=== PATIENT | male | born 1940 | race Caucasian/White ===

== ENCOUNTER 2016-12-19 12:51 | Inpatient (IN) | payer MEDICARE, OTHER ==
--- NOTE | ~2016-12-19 | HP ---
History And Physical [id number] [place]. [address] NAME: SHAGGY FLORES : 39 STATUS : ADM IN [facility]#: [id number] AGE: 76 ADM/REG DATE : 12/19/16 MR#: [id number] REPORT SERV DATE: 12/19/16 DICTATED BY: MURALI HURLEY DATE: 12/19/16 REPORT STATUS : Draft TRANSCRIBED BY: ARDEN DATE: 12/19/16 DATE OF ADMISSION: 12/19/2016 REASON FOR ADMISSION: Abdominal pain for five days. HISTORY OF PRESENT ILLNESS: A 76-year-old white male with past medical history of bladder cancer, status post urostomy; coronary artery disease, status post stent; anxiety; hypertension; hyperlipidemia; GERD, presenting with abdominal pain x5 days. The patient states that he was in his usual state of health on Thursday when he was able to be eat spaghetti without any complications. However, the patient went to [place] on Thursday at approximately 1:30 in the afternoon. He started having nausea, vomiting, and diarrhea with abdominal pain. The patient states nothing made the pain better or worse. It was midepigastric in nature. It was stabbing in character. During his time at [place], the patient did visit the ER at [facility] and he was diagnosed with a UTI. The patient was given some antibiotics through his IV in the ER and was given prescriptions for p.o. medications. However, the and the patient did not bother filling out the prescription and hence the patient never got treated. Fast forward to within the past 24 hours. The patient states that he has been having no appetite or any food intake since he got back from [place] on Thursday. However, within the past 24 hours, he has been having the similar symptoms of nausea and vomiting. The patient denies any hematemesis or hemoptysis. The patient initially started at [facility] and subsequently came to [facility] for transfer. The patient states he has not had any further diarrhea since Thursday. The patient denies any nausea, vomiting, chest pain, or shortness of breath. He denies any cough or sputum production. PAST MEDICAL HISTORY: As above. MEDICATIONS: The patient takes, 1. Tylenol 500 mg p.o. b.i.d. p.r.n. 2. Aspirin 81 mg p.o. daily. 3. Lipitor 20 mg p.o. at bedtime. 4. Pepto-Bismol 30 mL p.o. daily p.r.n. 5. Calcium one to two tabs p.o. four times a day p.r.n. 6. Tums 500 mg one to two tabs four times a day p.r.n. 7. Valium 10 mg p.o. daily p.r.n. 8. Nexium 40 mg p.o. daily. 9. Toprol-XL 12.5 mg p.o. b.i.d. 10.Aleve 220 mg p.o. daily p.r.n. for headache. 11.Altace 5 mg p.o. daily. 12.Nitroglycerin sublingual p.r.n. ALLERGIES: IODINE. SOCIAL HISTORY: Nonsmoker, nondrinker. Patient did have a history of smoking, but quit. FAMILY HISTORY: Significant for diabetes, dementia, and black lung. History And Physical [address] [address] NAME: SHAGGY FLORES : 39 STATUS : ADM IN PAT#: [id number] AGE: 76 ADM/REG DATE : 12/19/16 MR#: [id number] REPORT SERV DATE: 12/19/16 DICTATED BY: MURALI HURLEY DATE: 12/19/16 REPORT STATUS : Draft TRANSCRIBED BY: ARDEN DATE: 12/19/16 REVIEW OF SYSTEMS: 10-point review of systems conducted, which were negative except for above complaints. PHYSICAL EXAMINATION: VITAL SIGNS: Temperature of 101, pulse of 80, respiratory rate 16, BP 168/70, O2 saturation 92% on room air. HEAD AND NECK: Normocephalic, atraumatic. CARDIOVASCULAR: S1, S2. Regular rate and rhythm. LUNGS: Good air entry. No wheeze, rales, or rhonchi. ABDOMEN: Soft. Positive tenderness midepigastric. Positive urostomy on the right. Positive bowel sounds. No organomegaly. EXTREMITIES: No clubbing, cyanosis, or edema. NEUROLOGIC: Awake, alert, and oriented x3. Cranial nerves 2 through 12 grossly intact. LABORATORY DATA: Sodium 141, potassium 4.0, chloride 106, bicarb 26.1, BUN 25, creatinine 1.6, glucose 113, GFR 44, calcium 8.0, total bilirubin 0.4, AST 19, ALT 45, alkaline phosphatase 101, total protein 6.3, albumin 3.6, globulin 2.7, amylase 66, lipase 218. WBC 8.0, hemoglobin 15.1, hematocrit 44.3, platelets 128. Lactic acid 1.2. CT scan from [facility] shows no evidence of small bowel obstruction. The patient noted to have gallstones. ASSESSMENT AND PLAN: 1. Abdominal pain x5 days, rule out gastroenteritis, myocardial infarction, versus mesenteric stenosis. We will check cardiac enzymes q.6 hours. In addition, we will also order ultrasound of the abdomen, ruling out mesenteric stenosis. CT scan that was done at [facility] has been uploaded to PACS pending further evaluation from Radiology. In the meantime, we will also treat the patient with analgesia and Zofran. 2. Hypertension. Continue Altace and metoprolol. 3. Hyperlipidemia. Continue Lipitor. 4. Anxiety. Continue Valium p.r.n. 5. Gastroesophageal reflux disease. Continue omeprazole. 6. Deep venous thrombosis prophylaxis. We will give heparin. FBJ/MODL Murali Hurley MD / [id number] CC: Murali Hurley MD
--- NOTE | ~2016-12-19 | IDS ---
Interim Discharge Summary [facility] [address] [place]. [address] NAME: SHAGGY FLORES : 39 STATUS : ADM IN [facility]#: [id number] AGE: 76 ADM/REG DATE : 12/19/16 MR#: [id number] REPORT SERV DATE: 12/28/16 DICTATED BY: CANDY TRINIDAD DATE: 12/28/16 REPORT STATUS : Draft TRANSCRIBED BY: MODL DATE: 12/28/16 ADMISSION DATE: 12/19/2016 DISCHARGE DATE: UROLOGIST: Izaiah Bailey M.D. CONSULTING PHYSICIAN: Dr. Briggs for Surgery. INTERIM DIAGNOSES: 1. Status post laparoscopic cholecystectomy for gangrenous cholecystitis with cholelithiasis. 2. Gram-negative angélica bacteremia. 3. History of bladder cancer with urostomy. 4. Coronary artery disease with stent. 5. Hypertension. 6. Anxiety. DIAGNOSTIC EXAMS: Mesenteric duplex showing elevated velocity in the celiac artery. No Doppler evidence for significant stenosis of the superior mesenteric artery or inferior mesenteric artery. Abdominal ultrasound showing cholecystitis. No biliary dilatation. Slight dilatation of the calyces in both kidneys. HOSPITAL COURSE: Please refer to the H and P done by Dr. Yepez, dated on 12/19/2016. Briefly, this is a 76-year-old male, who with CAD, surgically removed bladder for cancer and urostomy, comes in with abdominal pain for five days. The patient noted that this pain is increased when he eats and has not been eating well. He was diagnosed with urinary tract infection, but he did not fill his outpatient prescription. The patient then came to the emergency room and was admitted by Dr. Yepez. The patient was initially thought to have a UTI and was given antibiotics for that. However, he continued having this abdominal pain and we did the above tests. We immediately got Dr. Briggs involved and he did a laparoscopic cholecystectomy, removing the gangrenous cholecystitis. Meanwhile, the patient has a gram-negative rods in one of the blood cultures and it has not been identified yet. It has to be sent out. He is now still on ceftriaxone five days postop and we are going to be continuing this until we get the cultures. Meanwhile, the patient is slowly recovering. We got Physical Therapy involved and they recommended the patient needs to go to a rehab facility and the family agreed to this. We are now waiting for rehab placement and once the patient goes, the patient will be off antibiotics. Partner of mine will be following up the patient on Thursday. GRADY/ARDEN Candy Trinidad M.D. Interim Discharge Summary [address] [address] NAME: SHAGGY FLORES : 39 STATUS : ADM IN PAT#: [id number] AGE: 76 ADM/REG DATE : 12/19/16 MR#: [id number] REPORT SERV DATE: 12/28/16 DICTATED BY: CANDY TRINIDAD DATE: 12/28/16 REPORT STATUS : Draft TRANSCRIBED BY: ARDEN DATE: 12/28/16 / [id number] CC: Jefe Rendon MD
--- NOTE | ~2016-12-19 | DS ---
Discharge Summary [facility] [address] [facility] [place]. [address] NAME: SHAGGY FLORES : 39 STATUS : DIS IN PAT#: [id number] AGE: 76 ADM/REG DATE : 12/19/16 MR#: [id number] REPORT SERV DATE: 12/31/16 DICTATED BY: CANDY OLIVEIRA DATE: 12/30/16 REPORT STATUS : Draft TRANSCRIBED BY: MODL DATE: 12/30/16 ADMISSION DATE: 12/19/2016 DISCHARGE DATE: 12/30/2016 PRESS BRAKE OPERATOR: Dr. Remigio Briggs, General Surgery. DISCHARGE DIAGNOSES: 1. Gram-negative bacilli sepsis. 2. Gangrenous cholecystitis. 3. Coronary artery disease with previous stent. 4. Hypertension. 5. Gastroesophageal reflux disease. 6. 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 Palma. 7. Previous ruptured appendicitis. 8. Stated history of multiple sclerosis in the past. HISTORY: This patient presented to an outside emergency room of [facility]. He had abdominal pain. The ER felt he needed inpatient care and the patient requested transfer to our facility. Imaging done at the outside facility showed gallstones. Here, he underwent abdominal ultrasound showing evidence of cholecystitis with gallbladder wall thickening. Surgery, Dr. Briggs saw the patient, talked with him and his family about the risks and benefits of surgery. He was taken to the operating room, where he was found to have acute gangrenous cholecystitis. He underwent laparoscopic lysis of adhesions and laparoscopic cholecystectomy on 12/23/2016. One of his blood cultures growing out a gram-negative bacilli. It is an unusual species that had been sent off to a reference lab to try to help identify it, but he is on Rocephin with excellent clinical response. He is afebrile. His white count has normalized. His abdominal pain has gone. His alkaline phosphatase, ALT, and AST normal. Total bilirubin normal. He has a chronic small appetite per his son, but he is even eating less after the surgery, has no abdominal pain, no nausea. Surgery has signed off his case. The patient states he had previous multiple sclerosis, but the MRI of the brain that I could find here done on 08/19/2011 at that time, just showed minimal atrophy and chronic microvascular white matter ischemic changes, otherwise unremarkable. CT scan of the brain done 06/22/2011 also showed no acute abnormalities and nothing to suggest multiple sclerosis on those exams. He is felt to need inpatient rehab. Those arrangements have been made. His son is aware. He does not have a Palma catheter. He has an ileal conduit. Therefore, any urinalysis and urine cultures will reflect bowel reza that is colonizing that ileal conduit, including the 50,000 methicillin-resistant Staph aureus that were found on a urine culture here on Discharge Summary [address] [place]. [address] NAME: SHAGGY FLORES : 39 STATUS : DIS IN PAT#: [id number] AGE: 76 ADM/REG DATE : 12/19/16 MR#: [id number] REPORT SERV DATE: 12/31/16 DICTATED BY: CANDY OLIVEIRA DATE: 12/30/16 REPORT STATUS : Draft TRANSCRIBED BY: ARDEN DATE: 12/30/16 12/19/2016. DISCHARGE MEDICATIONS: Aspirin 81 mg daily; Lipitor 20 mg at bedtime; Toprol-XL 12.5 mg twice a day, hold if pulse less than 60 or systolic less than 100; Nexium 40 mg daily; Altace 10 mg daily; Florastor one p.o. b.i.d. for three weeks; Tylenol 650 q.4 hours p.r.n. pain or fever; Pepto-Bismol p.r.n. upset stomach; Tums one or two q.i.d. p.r.n. indigestion; diazepam 10 mg b.i.d. p.r.n. anxiety, which is a chronic p.r.n. medicine for him; nitroglycerin 0.4 mg sublingual p.r.n. chest pain; Zofran ODT 4 mg q.4 hours p.r.n. nausea; Senokot two at bedtime p.r.n.; Percocet 5/325 q.6 hours p.r.n. pain; Rolaids p.r.n. My partner on admission had spoken to this gentleman about his code status and he was listed as DNR. Now on the day of discharge, I am meeting him for the first time and I have talked with him and his son, and the patient does verify that he is DNR/DNI and so I filled out the POLST form for rehab. I spent 47 minutes today with the patient, with a son, and with discharge planning. HENNA/ARDEN Candy Oliveira M.D. / [id number] CC: Jefe Sanchez M.D. [facility] Remigio Briggs M.D.
--- NOTE | ~2016-12-19 | CN ---
Consultation Report [facility] [address] [place]. [address] NAME: SHAGGY FLORES : 39 STATUS : ADM IN [facility]#: [id number] AGE: 76 ADM/REG DATE : 12/19/16 MR#: [id number] REPORT SERV DATE: 12/23/16 DICTATED BY: REMIGIO HERNÁNDEZ DATE: 12/23/16 REPORT STATUS : Draft TRANSCRIBED BY: MODL DATE: 12/23/16 SURGICAL CONSULTATION DATE OF CONSULTATION: It is a consultation requested from Dr. Balaji De La Vega. HISTORY OF PRESENT ILLNESS: This 76-year-old gentleman presented to the hospital with acute onset abdominal pain, that was localized in the right lower quadrant with nausea, vomiting, and diarrhea. He was out of town in [place] and his family brought him home secondary to the pain. He has a complex past medical history including a right lower quadrant urostomy, coronary artery disease, status post stent placement, previous perforated appendicitis with a right upper Riki-Michael incision, hypertension, hyperlipidemia, gastroesophageal reflux disease. He described the pain as sharp and stabbing. He was seen in the ED and felt to have urinary tract infection. He was given a prescription for p.o. medication and the patient subsequently was transferred to [facility] from [place]. He presented for admission here on 12/19/2016 with five days of pain. He was felt to have urinary tract infection. He denied hematemesis, coffee-grounds emesis, bright red blood per rectum, melena, or any active diarrhea at that time. Dr. De La Vega saw the patient today, the patient was noted to have exquisite, persistent right upper quadrant pain, and subsequently had an ultrasound that confirmed acute cholecystitis without biliary dilatation. On exam, the patient has findings consistent with his radiographic findings of acute cholecystitis. PAST MEDICAL HISTORY: As above, gastroesophageal reflux disease, history of bladder cancer. PAST SURGICAL HISTORY: Perforated appendectomy with right upper quadrant transverse incision, hernia repair x3, multiple bladder biopsies, and a cystectomy with ileal conduit. ALLERGIES: IODINATED CONTRAST DYE. MEDICATIONS: Please see hospital chart. SOCIAL HISTORY: The patient is and his family is at the bedside. He denies alcohol or tobacco. He smoked in the past, but quit some time ago. REVIEW OF SYSTEMS: The patient feels ill, hot, and weak. He denies current chest pain, dyspnea on exertion, syncope, palpitations, jaundice, or itching. He has no current bright red blood per rectum, acholic stools, or palmar erythema. PHYSICAL EXAMINATION: GENERAL: Ill-appearing male, in moderate distress. VITAL SIGNS: His temperature on 12/22/2016 was 102.3 with a 95 heart rate. CARDIOVASCULAR: Regular rate and rhythm. Consultation Report [address] [place]. [address] NAME: SHAGGY FLORES : 39 STATUS : ADM IN PAT#: [id number] AGE: 76 ADM/REG DATE : 12/19/16 MR#: [id number] REPORT SERV DATE: 12/23/16 DICTATED BY: REMIGIO HERNÁNDEZ DATE: 12/23/16 REPORT STATUS : Draft TRANSCRIBED BY: ARDEN DATE: 12/23/16 RESPIRATORY: Clear to auscultation. ABDOMEN: Soft, minimal distention. The patient has a right lower quadrant ileostomy with urine. He has a well-healed low midline incision on the right upper quadrant transverse incision. He has severe tenderness in the right upper quadrant with percussive tenderness and voluntary guarding. BACK: No CVA tenderness. EXTREMITIES: No clubbing, cyanosis, edema, or jaundice. LABORATORY DATA: The patient's white blood cell count is now 11,100, it was 13,600 yesterday. His liver function studies are within normal limits. He has positive blood cultures for gram-negative rods consistent with sepsis. IMAGING: Please see hospital chart. ASSESSMENT: 1. Cholelithiasis with acute cholecystitis with sepsis. 2. Hypertension. 3. Coronary artery disease with stent placement. 4. Significant previous past surgical histories of the abdomen. 5. Hypertension. 6. Hyperlipidemia. 7. Gastroesophageal reflux disease. 8. Anxiety. PLAN: The patient was informed of the imaging findings and exam today consistent with acute cholecystitis and our wish to proceed with cholecystectomy, they are informed of the significant increased risk for complications secondary to his previous incisions and lengthy inflammatory course prior to diagnosis today. They have been informed of the potential for bleeding, infection, poor cosmetic result, injury to the common bile duct and other intraabdominal structures, and other biliary ducts and wished to proceed. They decline further observation. They are aware of this significantly increased potential for open procedure secondary to his previous surgeries. DH/MODL Remigio Hernández M.D. / [id number] CC: MD Rebeca Cameron MD
--- NOTE | ~2016-12-19 | OP ---
Record Of Operation [address] [place]. [address] NAME: SHAGGY FLORES : 39 STATUS : ADM IN PAT#: [id number] AGE: 76 ADM/REG DATE : 12/19/16 MR#: [id number] REPORT SERV DATE: 12/23/16 DICTATED BY: REMIGIO HERNÁNDEZ DATE: 12/23/16 REPORT STATUS : Draft TRANSCRIBED BY: MODL DATE: 12/23/16 DATE OF PROCEDURE: 12/23/2016 PREOPERATIVE DIAGNOSES: 1. Cholelithiasis with acute gangrenous cholecystitis with sepsis. 2. Coronary artery disease status post stent placement. 3. History of bladder cancer with cystectomy and ileal conduit. 4. Hypertension. 5. History of right upper quadrant incisional hernia repair. POSTOPERATIVE DIAGNOSES: 1. Cholelithiasis with acute gangrenous cholecystitis with sepsis. 2. Coronary artery disease status post stent placement. 3. History of bladder cancer with cystectomy and ileal conduit. 4. Hypertension. 5. History of right upper quadrant incisional hernia repair. PROCEDURE: 1. Laparoscopic lysis of adhesions. 2. Laparoscopic cholecystectomy. ANESTHESIA: General. SURGEON: Remigio Hernández M.D. TOW BAR DRIVER: Suleman. COMPLICATIONS: None. DRAINS: None. ESTIMATED BLOOD LOSS: 75 mL. FINDINGS: 1. The patient was noted to have multiple significant omental adhesions to the previous right subcostal incision. Precluding visualization of the gallbladder and these were taken down using sharp scissors until the right upper quadrant trocars could be placed for cholecystectomy. 2. The patient had complete envelopment of the gallbladder by the omentum secondary to gangrene of the gallbladder. 3. The patient noted to have marked gangrenous gallbladder changes with black and green serosa with a normal-sized cystic duct. Therefore, no cholangiogram was obtained. 4. The patient had an additional one hour surgery secondary to severity and chronicity of disease and lysis of adhesions from previous abdominal operations. OPERATIVE TECHNIQUE: The patient was brought to the operating room and placed on the table Record Of Operation [address] [place]. [address] NAME: SHAGGY FLROES : 39 STATUS : ADM IN PAT#: [id number] AGE: 76 ADM/REG DATE : 12/19/16 MR#: [id number] REPORT SERV DATE: 12/23/16 DICTATED BY: REMIGIO HERNÁNDEZ Neymar DATE: 12/23/16 REPORT STATUS : Draft TRANSCRIBED BY: MODL DATE: 12/23/16 in a supine position. He had preoperative IV antibiotics. He had sequential hose in place. He voided prior to the procedure. He underwent general endotracheal anesthesia and was prepped and draped in sterile fashion and time-out was completed. Local anesthesia was instilled after an Ioban was placed around his ileal conduit. The anesthesia was instilled in the supraumbilical skin. A 15 blade knife was used to make a supraumbilical incision. A 12 mm trocar was inserted through the supraumbilical skin into the abdomen, and the laparoscope was inserted. There was no evidence of Veress or trocar injury. The above- mentioned findings were noted. An 11 mm trocar was inserted just to the left of the midline in the epigastrium under direct visualization. There was no evidence of any Veress or trocar injury. This was used with scissors to take down the right upper quadrant adhesions from the midline all the way to the right lateral upper abdominal wall. This was under direct visualization with blunt dissection with the scissors and then small cuts through tissue that could be visualized. There was no evidence of any bowel involvement. After all these adhesions were taken down after an additional 30 minutes of dissection, the two right upper quadrant trocars were placed under direct visualization. At this point, the patient was placed in reverse Trendelenburg and rolled to the left. Visualization of the abdomen from the epigastric trocar revealed ileal conduit to be intact with a small incarcerated preperitoneal fat without obstruction. There were multiple adhesions of the bowel to the anterior abdominal wall below the umbilicus and these were left in situ as there was no evidence of obstruction and they were intimately adherent to the anterior abdominal wall. The laparoscope was reinserted and the gallbladder could not be visualized. After the liver edge was carefully lifted up, a window was created at the absolute fundus of the gallbladder, so that it could be visualized. Using hydrodissection, the entire omentum was taken down away from the gallbladder as well as the right lateral liver using some electrocautery on the liver with the hook as well. This allowed the entire gallbladder to be identified and this took an additional 20 minutes of dissection secondary to the severity and chronicity of disease. The dissection continued and the cystic duct gallbladder junction was identified. It was carefully dissected using hydrodissection, encircled with a 5 mm [place] dissector. It was clipped three times proximally and divided distally. Of note, prior to grasping of the gallbladder, the gallbladder was aspirated and the black bile was aspirated and some was sent for culture. The cystic artery was then identified using blunt dissection more medial and it was encircled using hydrodissection, clipped twice proximally and cauterized distally. The gallbladder was removed from the fossa using hydrodissection and electrocautery hook and placed in a specimen bag and removed through the umbilicus with extension of the fascial incision. The laparoscope and trocar were reinserted, and examination of hepatic fossa noted to be hemostatic after irrigation and cautery of the liver bed. Two pieces of Surgicel were placed as well in light of the patient's recently getting heparin. There was no evidence of any other visual abnormalities at the end of the procedure. The clips were noted to be intact without any gross encroachment of common bile duct. As there was no evidence of any other visual abnormalities, all the instruments and trocars removed under direct visualization. The pneumoperitoneum was aspirated as the instruments were removed. The umbilical fascia was reapproximated using a running 0 Vicryl suture. Subcutaneous tissues were then thoroughly irrigated. The skin edges were reapproximated using running subcuticular Monocryl sutures. Dermabond was applied. He was extubated and taken to the recovery room in stable condition. All sponge and needle counts reported correct. Record Of Operation [address] [place]. [address] NAME: SHAGGY FLORES : 38 STATUS : ADM IN PAT#: [id number] AGE: 76 ADM/REG DATE : 12/19/16 MR#: [id number] REPORT SERV DATE: 12/23/16 DICTATED BY: REMIGIO HERNÁNDEZ DATE: 12/23/16 REPORT STATUS : Draft TRANSCRIBED BY: ARDEN DATE: 12/23/16 SABINE/ARDEN Remigio Hernández M.D. / [id number] CC: Jefe Rendon MD Patrick Foley, M.D. Froilan B. Joves, MD
[~2016-12-19 12:51] MED LIST: *UNABLE3; ALTA2.5 PO; ALTA5 PO; ASAB PO; ASABAYER PO; CIPRO (10%) PO; CRESTOR10 PO; DCN100 PO; DITRO5 PO; FIORICET OR; FLEX PO; LIPITOR10 PO; LIPITOR20 PO; LOP25 PO; METOPROLOL 25MG PO; NEXIUM40 PO; NITROMIST400 MCG SL; NITROSPRAY SL; NORCO1 TA1 PO; PCET PO; PERCOCET1 TA2 PO; PLAVIX PO; PYR200 PO; REQUIP5 MG PO; TESS PO; TOPXL25 PO; VALIUM; VALIUM PO; VALIUM10 MG PO; XALAT OPH
[2016-12-19] MEDS ORDERED: NEXIUM40 PO (14:08)
[2016-12-19] MEDS ORDERED: ALTA5 PO (14:13)
[2016-12-19] MEDS ORDERED: HALF81 PO (14:14)
[2016-12-19] MEDS ORDERED: TUMSROLL PO (14:14)
[2016-12-19] MEDS ORDERED: VALIUM10 MG PO (14:14)
[2016-12-19] MEDS ORDERED: TOPXL25 PO (14:14)
[2016-12-19] MEDS ORDERED: NITROSTAT0.4 MG SL (14:20)
[2016-12-19] MEDS ORDERED: ROLAID PO (14:21)
[2016-12-19] MEDS ORDERED: ALEVE220 MG PO (14:22)
[2016-12-19] MEDS ORDERED: ACET500CAP PO (14:23)
[2016-12-19] MEDS ORDERED: LIPITOR20 PO (14:23)
[2016-12-19] MEDS ORDERED: PEPTO BISMOL LIQ1 ML PO (14:23)
[2016-12-19] MEDS ORDERED: NITROGLYCERIN SPRAY SL (14:24)
[2016-12-19 17:02] LABS: C-REACTIVE PROTEIN 21.3 MG/L (<8.0); CPK 76 U/L (0-200); TROPONIN I <0.02 NG/ML (<0.05)
[2016-12-19 17:27] LABS: PROCALCITONIN 0.52 ng/mL (<0.5)
[2016-12-19 18:52] LABS: INFLUENZA A SCREEN NEGATIVE (NEGATIVE); INFLUENZA B SCREEN NEGATIVE (NEGATIVE)
[2016-12-19 19:25] LABS: ASCORBIC ACID (UR NOT ORDER) NEG (NEG); BILIRUBIN, URINE NEGATIVE (NEG); KETONE, URINE NEGATIVE (NEG); LEUKOCYTE ESTERASE(NOT OR LARGE (NEG); WBC (NOT ORDERED) (RFLEX) 134 (0-5)
[2016-12-19 22:33] LABS: CK-MB 0.5 NG/ML; CPK 42 U/L (0-200)
[2016-12-20 04:56] LABS: BASOPHILS 0.1 %; BASOPHILS ABSOLUTE 0.01 10/3/uL (0.0-0.16); EOSINOPHILS 0.4 %; EOSINOPHILS ABSOLUTE 0.05 10/3/uL (0.0-0.53); IMMATURE GRANULOCYTES 0.2 %; IMMATURE GRANULOCYTES ABSOLUTE 0.02 10/3/uL (0.0-0.11); LYMPHOCYTES 14.1 %; LYMPHOCYTES ABSOLUTE 1.63 10/3/uL (0.67-4.30); MEAN CORPUS HGB CONC 34.2 g/dL (32.0-36.0); MEAN CORPUSCULAR HEMOGLOB 30.6 pg (26.0-34.0); MEAN CORPUSCULAR VOLUME 89.5 fL (80-100); MEAN PLATELET VOLUME 9.6 fL (9.2-13.0); MONOCYTES 7.9 %; MONOCYTES ABSOLUTE 0.91 10/3/uL (0.21-1.20); NEUTROPHILS 77.3 %; RBC DISTRIBUTION WIDTH 13.7 % (12.0-16.0)
[2016-12-20 04:57] LABS: HEMATOCRIT 42.7 % (40.0-51.0); HEMOGLOBIN 14.6 g/dL (13.6-17.8); MANUAL DIFF NO %; PLATELET COUNT 115 10/3/uL (150-400); RED CELL COUNT 4.77 10/6/uL (4.7-6.1); WHITE BLOOD CELLS 11.5 10/3/uL (4.5-10.5)
[2016-12-20 05:15] LABS: ALKALINE PHOSPHATASE 73 U/L (45-117); CALCIUM, SERUM 7.8 MG/DL (8.5-10.4); CHLORIDE, SERUM 108 MMOL/L (96-112); CO2 (CARBON DIOXIDE) 23 MMOL/L (24-34); CPK 38 U/L (0-200); GFR AFRICAN AMERICAN 61 ML/MIN (>=60); GFR NON AFRICAN AMERICAN 53 ML/MIN (>=60); GLUCOSE, SERUM 100 MG/DL (60-99); PHOSPHORUS, SERUM 2.4 MG/DL (2.5-4.5); POTASSIUM, SERUM 3.8 MMOL/L (3.5-5.3); SGOT(AST) 13 U/L (5-40); SGPT(ALT) 19 U/L (5-65); SODIUM, SERUM 142 MMOL/L (135-148); TOTAL BILIRUBIN 0.8 MG/DL (0-1.2); TOTAL PROTEIN 5.8 G/DL (6.0-8.5); TRIGLYCERIDE 59 MG/DL (< 150)
[2016-12-20 05:19] LABS: A/G RATIO 0.9 (0.7-1.9); ALBUMIN 2.8 G/DL (3.5-5.0); BUN (BLOOD UREA NITROGEN) 21 MG/DL (6-23); CHOLESTEROL 55 MG/DL (< 200); CK-MB < 0.5 NG/ML; HDL CHOLESTEROL 28 MG/DL (> 39); LDL CHOLESTEROL 16 MG/DL (< 130); NON-HDL CHOLESTEROL 27 MG/DL (< 160)
[2016-12-20 10:07] LABS: CPK 39 U/L (0-200)
[2016-12-20 10:08] LABS: CK-MB 0.7 NG/ML
[2016-12-21 07:37] LABS: BASOPHILS 0.2 %; BASOPHILS ABSOLUTE 0.02 10/3/uL (0.0-0.16); EOSINOPHILS 0.6 %; EOSINOPHILS ABSOLUTE 0.08 10/3/uL (0.0-0.53); HEMATOCRIT 41.4 % (40.0-51.0); HEMOGLOBIN 14.2 g/dL (13.6-17.8); IMMATURE GRANULOCYTES 0.5 %; IMMATURE GRANULOCYTES ABSOLUTE 0.07 10/3/uL (0.0-0.11); LYMPHOCYTES 14.1 %; LYMPHOCYTES ABSOLUTE 1.87 10/3/uL (0.67-4.30); MEAN CORPUS HGB CONC 34.3 g/dL (32.0-36.0); MEAN CORPUSCULAR HEMOGLOB 30.5 pg (26.0-34.0); MEAN CORPUSCULAR VOLUME 88.8 fL (80-100); MONOCYTES 6.8 %; NEUTROPHILS 77.8 %; PLATELET COUNT 101 10/3/uL (150-400); RBC DISTRIBUTION WIDTH 13.7 % (12.0-16.0); RED CELL COUNT 4.66 10/6/uL (4.7-6.1); WHITE BLOOD CELLS 13.2 10/3/uL (4.5-10.5)
[2016-12-21 07:39] LABS: MANUAL DIFF NO %
[2016-12-21 07:54] LABS: ALBUMIN 2.5 G/DL (3.5-5.0); BUN (BLOOD UREA NITROGEN) 20 MG/DL (6-23); CALCIUM, SERUM 7.8 MG/DL (8.5-10.4); CHLORIDE, SERUM 108 MMOL/L (96-112); CO2 (CARBON DIOXIDE) 22 MMOL/L (24-34); CREATININE 1.18 MG/DL (0.70-1.30); GFR AFRICAN AMERICAN 69 ML/MIN (>=60); GFR NON AFRICAN AMERICAN 59 ML/MIN (>=60); GLUCOSE, SERUM 97 MG/DL (60-99); PHOSPHORUS, SERUM 1.7 MG/DL (2.5-4.5); SODIUM, SERUM 140 MMOL/L (135-148)
[2016-12-21 07:55] LABS: POTASSIUM, SERUM 3.9 MMOL/L (3.5-5.3)
[2016-12-22 05:19] LABS: CALCIUM, SERUM 7.6 MG/DL (8.5-10.4); CHLORIDE, SERUM 104 MMOL/L (96-112); CO2 (CARBON DIOXIDE) 25 MMOL/L (24-34); CREATININE 1.13 MG/DL (0.70-1.30); GFR AFRICAN AMERICAN 72 ML/MIN (>=60); GFR NON AFRICAN AMERICAN 62 ML/MIN (>=60); GLUCOSE, SERUM 99 MG/DL (60-99); POTASSIUM, SERUM 3.5 MMOL/L (3.5-5.3); SODIUM, SERUM 139 MMOL/L (135-148)
[2016-12-22 05:20] LABS: BUN (BLOOD UREA NITROGEN) 15 MG/DL (6-23)
[2016-12-22 05:42] LABS: BASOPHILS 0.1 %; BASOPHILS ABSOLUTE 0.01 10/3/uL (0.0-0.16); EOSINOPHILS ABSOLUTE 0.13 10/3/uL (0.0-0.53); HEMATOCRIT 39.8 % (40.0-51.0); HEMOGLOBIN 13.5 g/dL (13.6-17.8); IMMATURE GRANULOCYTES 0.4 %; IMMATURE GRANULOCYTES ABSOLUTE 0.05 10/3/uL (0.0-0.11); LYMPHOCYTES 14.4 %; LYMPHOCYTES ABSOLUTE 1.96 10/3/uL (0.67-4.30); MEAN CORPUS HGB CONC 33.9 g/dL (32.0-36.0); MEAN CORPUSCULAR HEMOGLOB 29.9 pg (26.0-34.0); MEAN CORPUSCULAR VOLUME 88.1 fL (80-100); MEAN PLATELET VOLUME 10.1 fL (9.2-13.0); MONOCYTES 5.4 %; MONOCYTES ABSOLUTE 0.73 10/3/uL (0.21-1.20); NEUTROPHILS 78.7 %; NEUTROPHILS ABSOLUTE 10.69 10/3/uL (2.02-8.40); RBC DISTRIBUTION WIDTH 13.6 % (12.0-16.0); RED CELL COUNT 4.52 10/6/uL (4.7-6.1); WHITE BLOOD CELLS 13.6 10/3/uL (4.5-10.5)
[2016-12-22 05:46] LABS: MANUAL DIFF NO %; PLATELET COUNT 143 10/3/uL (150-400)
[2016-12-22 05:50] LABS: A/G RATIO 0.7 (0.7-1.9); ALBUMIN 2.4 G/DL (3.5-5.0); GLOBULIN 3.6 G/DL (2.5-4.1); PHOSPHORUS, SERUM 2.2 MG/DL (2.5-4.5); SGOT(AST) 23 U/L (5-40); SGPT(ALT) 21 U/L (5-65); TOTAL BILIRUBIN 0.7 MG/DL (0-1.2)
[2016-12-22 05:57] LABS: ALKALINE PHOSPHATASE 100 U/L (45-117)
[2016-12-23 06:17] LABS: BASOPHILS 0.2 %; BASOPHILS ABSOLUTE 0.02 10/3/uL (0.0-0.16); EOSINOPHILS 1.7 %; EOSINOPHILS ABSOLUTE 0.19 10/3/uL (0.0-0.53); HEMATOCRIT 38.4 % (40.0-51.0); HEMOGLOBIN 13.2 g/dL (13.6-17.8); IMMATURE GRANULOCYTES 0.5 %; IMMATURE GRANULOCYTES ABSOLUTE 0.05 10/3/uL (0.0-0.11); LYMPHOCYTES ABSOLUTE 1.33 10/3/uL (0.67-4.30); MEAN CORPUS HGB CONC 34.4 g/dL (32.0-36.0); MEAN CORPUSCULAR HEMOGLOB 30.4 pg (26.0-34.0); MEAN CORPUSCULAR VOLUME 88.5 fL (80-100); MONOCYTES ABSOLUTE 0.78 10/3/uL (0.21-1.20); NEUTROPHILS 78.6 %; PLATELET COUNT 159 10/3/uL (150-400); RBC DISTRIBUTION WIDTH 13.2 % (12.0-16.0); RED CELL COUNT 4.34 10/6/uL (4.7-6.1); WHITE BLOOD CELLS 11.1 10/3/uL (4.5-10.5)
[2016-12-23 06:19] LABS: MANUAL DIFF NO %
[2016-12-23 06:34] LABS: A/G RATIO 0.7 (0.7-1.9); ALBUMIN 2.2 G/DL (3.5-5.0); ALKALINE PHOSPHATASE 100 U/L (45-117); BUN (BLOOD UREA NITROGEN) 14 MG/DL (6-23); CALCIUM, SERUM 7.5 MG/DL (8.5-10.4); CHLORIDE, SERUM 108 MMOL/L (96-112); CO2 (CARBON DIOXIDE) 26 MMOL/L (24-34); CREATININE 1.12 MG/DL (0.70-1.30); GFR AFRICAN AMERICAN 73 ML/MIN (>=60); GFR NON AFRICAN AMERICAN 63 ML/MIN (>=60); GLOBULIN 3.2 G/DL (2.5-4.1); GLUCOSE, SERUM 109 MG/DL (60-99); PHOSPHORUS, SERUM 2.9 MG/DL (2.5-4.5); POTASSIUM, SERUM 3.7 MMOL/L (3.5-5.3); SGOT(AST) 21 U/L (5-40); SGPT(ALT) 21 U/L (5-65); SODIUM, SERUM 141 MMOL/L (135-148); TOTAL BILIRUBIN 0.6 MG/DL (0-1.2); TOTAL PROTEIN 5.4 G/DL (6.0-8.5)
[2016-12-24 05:42] LABS: BASOPHILS 0 %; EOSINOPHILS 0 %; HEMATOCRIT 37.2 % (40.0-51.0); HEMOGLOBIN 12.9 g/dL (13.6-17.8); IMMATURE GRANULOCYTES 0.5 %; IMMATURE GRANULOCYTES ABSOLUTE 0.04 10/3/uL (0.0-0.11); LYMPHOCYTES 11.5 %; LYMPHOCYTES ABSOLUTE 0.98 10/3/uL (0.67-4.30); MEAN CORPUS HGB CONC 34.7 g/dL (32.0-36.0); MEAN CORPUSCULAR HEMOGLOB 30.2 pg (26.0-34.0); MEAN CORPUSCULAR VOLUME 87.1 fL (80-100); MEAN PLATELET VOLUME 9.8 fL (9.2-13.0); MONOCYTES 3.4 %; MONOCYTES ABSOLUTE 0.29 10/3/uL (0.21-1.20); NEUTROPHILS 84.6 %; NEUTROPHILS ABSOLUTE 7.24 10/3/uL (2.02-8.40); PLATELET COUNT 164 10/3/uL (150-400); RBC DISTRIBUTION WIDTH 13.7 % (12.0-16.0); RED CELL COUNT 4.27 10/6/uL (4.7-6.1); WHITE BLOOD CELLS 8.6 10/3/uL (4.5-10.5)
[2016-12-24 05:48] LABS: MANUAL DIFF NO %
[2016-12-24 05:53] LABS: A/G RATIO 0.6 (0.7-1.9); ALBUMIN 2.1 G/DL (3.5-5.0); ALKALINE PHOSPHATASE 103 U/L (45-117); BUN (BLOOD UREA NITROGEN) 17 MG/DL (6-23); CALCIUM, SERUM 7.6 MG/DL (8.5-10.4); CHLORIDE, SERUM 109 MMOL/L (96-112); CO2 (CARBON DIOXIDE) 25 MMOL/L (24-34); CREATININE 1.17 MG/DL (0.70-1.30); GFR AFRICAN AMERICAN 69 ML/MIN (>=60); GFR NON AFRICAN AMERICAN 60 ML/MIN (>=60); GLOBULIN 3.8 G/DL (2.5-4.1); GLUCOSE, SERUM 225 MG/DL (60-99); POTASSIUM, SERUM 4.3 MMOL/L (3.5-5.3); SGOT(AST) 34 U/L (5-40); SGPT(ALT) 28 U/L (5-65); SODIUM, SERUM 143 MMOL/L (135-148); TOTAL BILIRUBIN 0.2 MG/DL (0-1.2); TOTAL PROTEIN 5.9 G/DL (6.0-8.5)
[2016-12-26 06:54] LABS: HEMATOCRIT 38.6 % (40.0-51.0); HEMOGLOBIN 12.8 g/dL (13.6-17.8); MEAN CORPUS HGB CONC 33.2 g/dL (32.0-36.0); MEAN CORPUSCULAR HEMOGLOB 30.2 pg (26.0-34.0); MEAN PLATELET VOLUME 9.6 fL (9.2-13.0); PLATELET COUNT 206 10/3/uL (150-400); RBC DISTRIBUTION WIDTH 13.8 % (12.0-16.0); RED CELL COUNT 4.24 10/6/uL (4.7-6.1); WHITE BLOOD CELLS 9.5 10/3/uL (4.5-10.5)
[2016-12-26 06:56] LABS: MANUAL DIFF YES %
[2016-12-26 07:00] LABS: BUN (BLOOD UREA NITROGEN) 20 MG/DL (6-23); CALCIUM, SERUM 7.5 MG/DL (8.5-10.4); CHLORIDE, SERUM 109 MMOL/L (96-112); CO2 (CARBON DIOXIDE) 26 MMOL/L (24-34); CREATININE 1.03 MG/DL (0.70-1.30); GFR AFRICAN AMERICAN 81 ML/MIN (>=60); GFR NON AFRICAN AMERICAN 70 ML/MIN (>=60); POTASSIUM, SERUM 3.9 MMOL/L (3.5-5.3); SODIUM, SERUM 144 MMOL/L (135-148)
[2016-12-26 07:01] LABS: GLUCOSE, SERUM 85 MG/DL (60-99)
[2016-12-26 07:39] LABS: PROCALCITONIN 0.25 ng/mL (<0.5)
[2016-12-26 07:52] LABS: BAND NEUTROPHILS 14 %; BASOPHILS 1 %; EOSINOPHILS 2 %; EOSINOPHILS ABSOLUTE (CALC) 0.19 10/3/uL (0.0-0.53); LYMPHOCYTES 15 %; LYMPHOCYTES ABSOLUTE (CALC) 1.43 10/3/uL (0.67-4.30); MONOCYTES 4 %; MONOCYTES ABSOLUTE (CALC) 0.38 10/3/uL (0.21-1.20); NEUTROPHILS ABSOLUTE (CALC) 7.41 10/3/uL (2.02-8.40); PLATELET ESTIMATE ADQ (ADEQUATE); RBC MORPHOLOGY NORM (NORMAL); SEGMENTED NEUTROPHIL (0) 64 %; TOTAL NUCLEATED CELLS 100
[2016-12-28 06:11] LABS: BASOPHILS 0.2 %; BASOPHILS ABSOLUTE 0.02 10/3/uL (0.0-0.16); EOSINOPHILS ABSOLUTE 0.39 10/3/uL (0.0-0.53); HEMATOCRIT 41.6 % (40.0-51.0); HEMOGLOBIN 13.9 g/dL (13.6-17.8); IMMATURE GRANULOCYTES 1.4 %; IMMATURE GRANULOCYTES ABSOLUTE 0.14 10/3/uL (0.0-0.11); LYMPHOCYTES 18.3 %; LYMPHOCYTES ABSOLUTE 1.79 10/3/uL (0.67-4.30); MEAN CORPUS HGB CONC 33.4 g/dL (32.0-36.0); MEAN CORPUSCULAR HEMOGLOB 29.6 pg (26.0-34.0); MEAN CORPUSCULAR VOLUME 88.7 fL (80-100); MEAN PLATELET VOLUME 9.4 fL (9.2-13.0); MONOCYTES 5.4 %; MONOCYTES ABSOLUTE 0.53 10/3/uL (0.21-1.20); NEUTROPHILS 70.7 %; NEUTROPHILS ABSOLUTE 6.89 10/3/uL (2.02-8.40); RBC DISTRIBUTION WIDTH 13.7 % (12.0-16.0); RED CELL COUNT 4.69 10/6/uL (4.7-6.1); WHITE BLOOD CELLS 9.8 10/3/uL (4.5-10.5)
[2016-12-28 06:13] LABS: MANUAL DIFF NO %; PLATELET COUNT 274 10/3/uL (150-400)
[2016-12-28 06:25] LABS: BUN (BLOOD UREA NITROGEN) 18 MG/DL (6-23); CHLORIDE, SERUM 103 MMOL/L (96-112); CO2 (CARBON DIOXIDE) 27 MMOL/L (24-34); CREATININE 1.01 MG/DL (0.70-1.30); GFR AFRICAN AMERICAN 83 ML/MIN (>=60); GFR NON AFRICAN AMERICAN 71 ML/MIN (>=60); GLUCOSE, SERUM 101 MG/DL (60-99); POTASSIUM, SERUM 3.9 MMOL/L (3.5-5.3); SODIUM, SERUM 141 MMOL/L (135-148)
[2016-12-28 06:26] LABS: CALCIUM, SERUM 8.5 MG/DL (8.5-10.4)
[2016-12-30 13:45] LABS: BASOPHILS 0.2 %; BASOPHILS ABSOLUTE 0.02 10/3/uL (0.0-0.16); EOSINOPHILS 5.5 %; EOSINOPHILS ABSOLUTE 0.45 10/3/uL (0.0-0.53); HEMATOCRIT 44.2 % (40.0-51.0); HEMOGLOBIN 14.7 g/dL (13.6-17.8); IMMATURE GRANULOCYTES 1.7 %; IMMATURE GRANULOCYTES ABSOLUTE 0.14 10/3/uL (0.0-0.11); LYMPHOCYTES 24.5 %; LYMPHOCYTES ABSOLUTE 2.01 10/3/uL (0.67-4.30); MEAN CORPUS HGB CONC 33.3 g/dL (32.0-36.0); MEAN CORPUSCULAR HEMOGLOB 29.9 pg (26.0-34.0); MEAN PLATELET VOLUME 9.2 fL (9.2-13.0); MONOCYTES 5.4 %; MONOCYTES ABSOLUTE 0.44 10/3/uL (0.21-1.20); NEUTROPHILS 62.7 %; NEUTROPHILS ABSOLUTE 5.16 10/3/uL (2.02-8.40); PLATELET COUNT 285 10/3/uL (150-400); RBC DISTRIBUTION WIDTH 13.7 % (12.0-16.0); RED CELL COUNT 4.91 10/6/uL (4.7-6.1); WHITE BLOOD CELLS 8.2 10/3/uL (4.5-10.5)
[2016-12-30 13:47] LABS: MANUAL DIFF NO %
[2016-12-30 13:57] LABS: BUN (BLOOD UREA NITROGEN) 21 MG/DL (6-23); CALCIUM, SERUM 8.6 MG/DL (8.5-10.4); CHLORIDE, SERUM 107 MMOL/L (96-112); CO2 (CARBON DIOXIDE) 28 MMOL/L (24-34); CREATININE 1.19 MG/DL (0.70-1.30); GFR AFRICAN AMERICAN 68 ML/MIN (>=60); GFR NON AFRICAN AMERICAN 59 ML/MIN (>=60); GLUCOSE, SERUM 101 MG/DL (60-99); POTASSIUM, SERUM 4.5 MMOL/L (3.5-5.3); SODIUM, SERUM 142 MMOL/L (135-148)
[2017-05-20] MEDS ORDERED: NEXIUM40 PO (19:48)
[2017-06-05] MEDS ORDERED: ASAB PO (04:49)
[2017-06-05] MEDS ORDERED: NITROLINGUAL S4.9 GM SL (15:24)
[2017-06-07] MEDS ORDERED: ASAB PO (10:46)
[2017-06-07] MEDS ORDERED: CEFT5 PO (10:48)
== END 2016-12-30 17:25 | DRG 854 ==
LOC: 2SO 12:51
PROVIDERS: Hospitalist; Internal Medicine; Surgery
PROC: 0FT44ZZ Resection of Gallbladder, Percutaneous Endoscopic Approach (ICD-10-PCS; principal; 2016-12-23 14:00)
PROC: 0DN64ZZ Release Stomach, Percutaneous Endoscopic Approach (ICD-10-PCS; 2016-12-23 14:00)
DX: A41.50 Gram-negative sepsis, unspecified (principal); K80.00 Calculus of gallbladder with acute cholecystitis without obstruction; N39.0 Urinary tract infection, site not specified; G35 Multiple sclerosis; I10 Essential (primary) hypertension; K21.9 Gastro-esophageal reflux disease without esophagitis; E78.5 Hyperlipidemia, unspecified; I25.10 Atherosclerotic heart disease of native coronary artery without angina pectoris; F41.9 Anxiety disorder, unspecified; K66.0 Peritoneal adhesions (postprocedural) (postinfection); B95.62 Methicillin resistant Staphylococcus aureus infection as the cause of diseases classified elsewhere; Z95.5 Presence of coronary angioplasty implant and graft; Z85.51 Personal history of malignant neoplasm of bladder; Z90.6 Acquired absence of other parts of urinary tract; Z43.2 Encounter for attention to ileostomy; Z88.8 Allergy status to other drugs, medicaments and biological substances; Z83.3 Family history of diabetes mellitus; Z91.041 Radiographic dye allergy status
CPT/HCPCS: 76700; 80048; 80053; 80061; 80069; 81001; 82550; 82553; 82962; 83605; 83735; 84100; 84145; 84484; 85025; 85652; 86140; 87015; 87040; 87070; 87075; 87077; 87086; 87102; 87116; 87150; 87186; 87205; 87449; 87804; 88304; 93005; 93975; 97110-GP; 97116-GP; 97161-GP; A9270-GY; G8978-CL-GP; G8979-CJ-GP; J2370; J2405; J2543; J2710; J3010; J3370

== ENCOUNTER 2017-05-25 07:12 | Day surgery (SDC) | payer MEDICARE, OTHER ==
--- NOTE | ~2017-05-25 | OP ---
Record Of Operation [facility] [address] [place]. [address] NAME: SHAGGY FLORES : 38 STATUS : [facility]#: [id number] AGE: 77 ADM/REG DATE : 05/25/17 MR#: [id number] REPORT SERV DATE: 05/25/17 DICTATED BY: TITUS PEREIRA DATE: 05/25/17 REPORT STATUS : Draft TRANSCRIBED BY: MODL DATE: 05/25/17 DATE OF PROCEDURE: 05/25/2017 PREOPERATIVE DIAGNOSIS: Left hydronephrosis and left ureteral ileal anastomotic obstruction. POSTOPERATIVE DIAGNOSIS: Left hydronephrosis and left ureteral ileal anastomotic obstruction. PROCEDURES: 1. Endoscopy of ileal conduit with biopsy of the left ureteral ileal anastomosis and an ileal conduit. 2. Left ureteral stent exchange and left nephrostomy tube removal. ANESTHESIA: General endotracheal. BLOOD LOSS: Less than 5 mL. FLUID REPLACEMENT: None. DRAINS: 7-Nepalese 24 cm double-J left ureteral stent with the strings internalized into the ileal conduit. 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 He has developed a late ileal anastomotic stricture. He has had a percutaneous nephroureteral tube placed. TECHNIQUE: The patient identified, brought to the cystoscopy suite. He was administered general anesthetic agent by the Anesthesia Service and intubated. The left nephroureteral tube was released from its attachments in the left flank. I then prepped the ileal conduit in the lower abdomen in the usual sterile fashion. The tip of the left nephroureteral tube was coming out through the conduit. I fed a 0.38 Amplatz Super Stiff wire through that all the way out through the left flank. I then had the nurse remove the tube completely. Over the wire, I positioned a Brandon exchange catheter. Around the changed catheter up into the left ureter and then removed the inner core and placed a second wire up the left ureter and removed the Brandon. I inserted the flexible cystoscope into the ileal conduit. There were some areas of polypoid changes within the ileal conduit. The urothelium on this polypoid changes appeared normal, but there were changes. I was unable to get the cystoscope into the ileal ureteral anastomosis. I advanced a flexible ureteroscope over one of the wires and advanced it all the way up into the renal pelvis on the left side. I removed the wire leaving the safety wire behind. I surveyed the renal pelvis. It appeared relatively normal although dilated. The proximal ureter was dilated. I took a biopsy from the proximal ureter and sent this as left mid ureter. I then carried the ureteroscope back down, took some biopsies from the distal ureter from the ileal ureteral anastomosis which really did not appear that abnormal and then finally the ileal conduit. When I had collected all my biopsies and I had done urine Record Of [address] [address] NAME: SHAGGY FLORES : 38 STATUS : [facility] PAT#: [id number] AGE: 77 ADM/REG DATE : 05/25/17 MR#: [id number] REPORT SERV DATE: 05/25/17 DICTATED BY: TITUS PEREIRA DATE: 05/25/17 REPORT STATUS : Draft TRANSCRIBED BY: ARDEN DATE: 05/25/17 cytologies from the renal pelvis, I back loaded the 7-Nepalese 24 cm double-J left ureteral stent over the wire. I removed the safety wire and I left the strings attached and buried them inside the ileal conduit. This position was confirmed fluoroscopically. The procedure was terminated. The patient was awakened and taken to the recovery unit in a stable and satisfactory condition. PF/ARDEN Titus Pereira M.D. / [id number] CC: Jefe Jack M.D.
[~2017-05-25 07:12] MED LIST changes: +ACET500CAP PO; +ALEVE220 MG PO; +HALF81 PO; +NITROGLYCERIN SPRAY SL; +NITROSTAT0.4 MG SL; +PEPTO BISMOL LIQ1 ML PO; +ROLAID PO; +TUMSROLL PO
== END 2017-05-25 13:40 | disposition home or self-care (01) ==
LOC: SDC 07:12
PROVIDERS: Urology
PROC: 0TP98DZ Removal of Intraluminal Device from Ureter, Via Natural or Artificial Opening Endoscopic (ICD-10-PCS; 2017-05-25)
PROC: 0TB78ZX Excision of Left Ureter, Via Natural or Artificial Opening Endoscopic, Diagnostic (ICD-10-PCS; principal; 2017-05-25 08:45)
PROC: 0TP5X0Z Removal of Drainage Device from Kidney, External Approach (ICD-10-PCS; 2017-05-25 08:45)
PROC: 0T778DZ Dilation of Left Ureter with Intraluminal Device, Via Natural or Artificial Opening Endoscopic (ICD-10-PCS; 2017-05-25 08:45)
DX: K91.89 Other postprocedural complications and disorders of digestive system (principal); N28.89 Other specified disorders of kidney and ureter; C67.9 Malignant neoplasm of bladder, unspecified; I10 Essential (primary) hypertension; Z93.6 Other artificial openings of urinary tract status; Z90.6 Acquired absence of other parts of urinary tract; Z90.79 Acquired absence of other genital organ(s); Z98.890 Other specified postprocedural states; Z88.5 Allergy status to narcotic agent; Z91.041 Radiographic dye allergy status; Z91.048 Other nonmedicinal substance allergy status; Z79.899 Other long term (current) drug therapy
CPT/HCPCS: 74420; 88112; 88305; 88342; 88344; C1769; C1892; C2617; J0690; J2405; J2710; J3010